=== PATIENT | female | born 1990 | race Caucasian/White ===

== ENCOUNTER 2019-10-30 22:15 | Emergency (ER) | payer BC, OTHER ==
[~2019-10-30] VITALS: Ht 160 cm; Wt 90.0 kg
[2019-10-30 22:42] VITALS: BP 116/76
[2019-10-30] MEDS ORDERED: LIDOCAINE 1% Multi-Dose 20 ML VIAL. INJ ONE (23:15)
--- NOTE | 2019-10-30 23:22 | PHYS DOC ---
Past Medical History Past Medical History: Seizure (KATERYNA ELDRIDGE APRN) Past Surgical History: Cholecystectomy, (KATERYNA ELDRIDGE ABSTRACT CHECKER) Smoking Status: Current Every Day Smoker Alcohol Use: Rarely (KATERYNA ELDRIDGE APRN) General Adult EDM: Chief Complaint: LACERATION/AVULSION HPI: HPI: Patient is a 29 year old female who presents with was washing dishes and there was a knife at the bottom of the sink. She states that when she reached and she cut her right lateral ring finger tip. This caused a 1 inch non-gaping laceration. Bleeding was controlled. Patient's last tetanus shot was a year ago. Patient has full range of motion of the finger at all joints. The cut did not go over any joints. No signs of infection. Cap refill is less than 2 seconds. Radial pulses strong and present. Skin pink warm dry. Patient rates her pain at a throbbing 3 out of 10. Patient denies numbness or tingling, coolness of the extremity, focal weakness of the extremity. She has a history of epilepsy, cholecystectomy, . (KATERYNA ELDRIDGE ABSTRACT CHECKER) Review of Systems: Review of Systems: Constitutional: Denies fever or chills. [] Eyes: Denies change in visual acuity. [] HENT: Denies nasal congestion or sore throat. [] Respiratory: Denies cough or shortness of breath. [] Cardiovascular: Denies chest pain or edema. [] GI: Denies abdominal pain, nausea, vomiting, bloody stools or diarrhea. [] : Denies dysuria. [] Musculoskeletal: Denies back pain or joint pain. Right fourth finger pain. [] Integument: Denies rash. Right ring finger laceration. [] Neurologic: Denies headache, focal weakness or sensory changes. [] Endocrine: Denies polyuria or polydipsia. [] Lymphatic: Denies swollen glands. [] Psychiatric: Denies depression or anxiety. [] (KATERYNA ELDRIDGE APRN) Heart Score: Risk Factors: Risk Factors: DM, Current or recent (<one month) smoker, HTN, HLP, family history of CAD, obesity. Risk Scores: Score 0 - 3: 2.5% MACE over next 6 weeks - Discharge Home Score 4 - 6: 20.3% MACE over next 6 weeks - Admit for Clinical Observation Score 7 - 10: 72.7% MACE over next 6 weeks - Early Invasive Strategies (KATERYNA ELDRIDGE APRN) Current Medications: Current Medications Medications (Trade) Dose Ordered Sig/Tiff Start Time Stop Time Status Last Admin Dose Admin Lidocaine HCl (Lidocaine 1% 20ml Vial) 20 ml 1X ONCE 10/30/19 23:15 10/30/19 23:16 10/30/19 23:05 20 ML (KATERYNA ELDRIDGE APRN) Allergies: Allergies: Allergies Coded Allergies Type Severity Reaction Last Updated Verified No Known Drug Allergies 10/30/19 No (KATERYNA ELDRIDGE APRN) Physical Exam: PE: Constitutional: Well developed, well nourished, no acute distress, non-toxic appearance. [] HENT: Normocephalic, atraumatic, bilateral external ears normal, oropharynx moist, no oral exudates, nose normal. [] Eyes: PERRLA, EOMI, conjunctiva normal, no discharge. [] Neck: Normal range of motion, no tenderness, supple, no stridor. [] Cardiovascular:Heart rate regular rhythm, no murmur [] Lungs & Thorax: Bilateral breath sounds clear to auscultation [] Abdomen: Bowel sounds normal, soft, no tenderness, no masses, no pulsatile masses. [] Skin: Warm, dry, no erythema, no rash. Right fourth finger tip lateral laceration. [] Back: No tenderness, no CVA tenderness. [] Extremities: No tenderness, no cyanosis, no clubbing, ROM intact, no edema. [] Neurologic: Alert and oriented X 3, normal motor function, normal sensory function, no focal deficits noted. [] Psychologic: Affect normal, judgement normal, mood normal. [] (KATERYNA ELDRIDGE APRN) Current Patient Data: Vital Signs: Vital Signs Date Time Temp Pulse Resp B/P (MAP) Pulse Ox O2 Delivery O2 Flow Rate FiO2 10/30/19 22:42 97.9 79 16 116/76 (89) 98 Room Air 97.9 (KATERYNA ELDRIDGE APRN) EKG: EKG: [] (KATERYNA ELDRIDGE APRN) Radiology/Procedures: Radiology/Procedures: [] (KATERYNA ELDRIDGE APRN) Course & Med Decision Making: Course & Med Decision Making Pertinent Labs and Imaging studies reviewed. (See chart for details) See HPI. Alert and oriented x4. Ambulatory with a steady gait. Skin pink warm and dry. Neurologically intact. Denies numbness or tingling. Patient tolerated sutures. Laceration repair Location: Right lateral fourth fingertip Local anesthesia: 1% lidocaine Interrupted sutures/Internal sutures: 4 sutures using 6-0 Nerve/ligament/muscle damage: none Cleaning and irrigation: Saline and chlorhexidine The appropriate timeout was taken. The area was prepped and draped in the usual sterile fashion. The wound was copiously irrigated with normal saline and chlorhexidine. Patient tolerated well without complication. Dressing was applied to the area follow-up education is given to observe for signs and symptoms of infection, bleeding and to follow-up promptly if these occur. Patient can return in 48 hours for a wound recheck. Sutures to be removed in 7 to 10 days. [] (KATERYNA ELDRIDGE APRN) Course & Med Decision Making I have reviewed the [employer]'s note and Plan of Care. I was available for consultation as needed during the patient's visit in the emergency department. I agree with the clinical impression, plans and disposition. (HENRI CHARLES MD) Dragon Disclaimer: Dragon Disclaimer: This electronic medical record was generated, in whole or in part, using a voice recognition dictation system. (KATERYNA ELDRIDGE APRN) Departure Departure Impression: Primary Impression: Laceration Disposition: 01 HOME, SELF-CARE Condition: STABLE Referrals: UNKNOWN PCP NAME (PCP) Patient Instructions: Fingertip Laceration Additional Instructions: Return in 10 days for suture removal. Watch for signs infection. Keep clean and covered. Justicifation of Admission Dx: Justifications for Admission: Justification of Admission Dx: N/A (KATERYNA ELDRIDGE APRN) KATERYNA ELDRIDGE APRN Oct 30, 2019 23:22 HENRI CHARLES MD Oct 30, 2019 23:55
== END 2019-10-30 23:27 | disposition home or self-care (01) ==
LOC: ER 22:15
DX: S61.214A Laceration without foreign body of right ring finger without damage to nail, initial encounter (principal); F17.200 Nicotine dependence, unspecified, uncomplicated; Z90.49 Acquired absence of other specified parts of digestive tract; Z98.890 Other specified postprocedural states; W26.0XXA Contact with knife, initial encounter; Y93.89 Activity, other specified; Y92.89 Other specified places as the place of occurrence of the external cause; Y99.8 Other external cause status
CPT/HCPCS: 12002; 99282; J3490